=== PATIENT | female | born 1945 | race Caucasian/White ===

== ENCOUNTER 2019-06-18 22:07 | Inpatient (IN) | payer BC, MEDICARE ==
[~2019-06-18 22:07] MED LIST: Iopamidol-370 76% 500 ML 1 ML ONE
[2019-06-18 22:24] LABS: #Lymphocytes 0.9 thou/uL (1.20-3.40); #Monocytes 0.6 thou/uL (0.11-0.59); %Basophils 0.3 % (0.0-1.0); %Lymphocytes 6.9 % (21.0-51.0); %Monocytes 4.7 % (0.0-10.0); %Neutrophils 88.1 % (42.0-75.0); Hemoglobin 15.7 g/dL (12.0-16.0); Mean Corpuscular Hemoglobin 29.5 pg (27.0-31.0); Mean Corpuscular Volume 89.4 fL (78.0-98.0); Mean Platelet Volume 8.4 fL (7.4-10.4); Platelet Count 239 thou/uL (130-400); RBC Distribution Width 13.2 % (11.5-14.5); Red Blood Cell (RBC) Count 5.34 mill/uL (4.20-5.40); White Blood Cell (WBC) Count 12.5 thou/uL (4.8-10.8)
[2019-06-18 22:32] LABS: Prothrombin Time 13.4 SEC (12.0-14.7)
[2019-06-18 22:33] LABS: PTT 33.9 SEC (22.9-36.1)
--- NOTE | 2019-06-18 22:34 | CT ---
Exam: Head CT without contrast HISTORY: Left-sided facial droop. Left-sided weakness. Slurred speech. COMPARISON: none FINDINGS: Hemorrhage: No intraparenchymal hemorrhage or extra-axial hematoma. Brain parenchyma: Cortical driscoll-white matter differentiation is preserved. No mass effect or midline shift. Basilar cisterns are patent.There is a nonspecific hyperdensity in the right frontal subcortical white matter. Some of these hypodensities are somewhat ill-defined while others are somew hat more linear in appearance. Components of parenchymal calcification are suspected. The more ill-defined calcification measures 0.9 cm. Ventricular system: Ventricles and sulci are patent and symmetric. Calvarium: Intact. Sinuses and mastoid air cells: Left maxillary sinus mucous retention cyst IMPRESSION: 1. No acute intracranial process 2. Nonspecific hypodensities in the right frontal lobe, involving the subcortical white matter. Possi bility of underlying intraparenchymal mass cannot be excluded. Better interrogation with a pre and postcontrast brain MRI is recommended. Results of study discussed with Lori Cain 06/18/2019 at 10:30 PM Code CR
[2019-06-18] MEDS ORDERED: hydrALAZINE 20 MG/ML VIAL ONE (22:35)
[2019-06-18 22:39] LABS: ALT (SGPT) 29 U/L (8-55); AST (SGOT) 50 U/L (5-34); Albumin 4.3 g/dL (3.4-4.8); Alkaline Phosphatase 100 U/L (40-110); Anion Gap 17 mmol/L (10-20); BUN (Urea Nitrogen) 9 mg/dL (9.8-20.1); Bilirubin, Total 1.4 mg/dL (0.2-1.2); Calc. Creatinine Clearance 0 mL/min (70-130); Calcium 9.6 mg/dL (7.8-10.44); Carbon Dioxide 20 mmol/L (23-31); Chloride 108 mmol/L (98-107); Estimated GFR-MDRD 76; Globulin 2.9 g/dL (2.4-3.5); Glucose 128 mg/dL (83-110); Protein, Total 7.2 g/dL (6.0-8.3); Sodium 141 mmol/L (136-145)
[2019-06-18] MEDS ORDERED: Aspirin Chewable 81 MG TAB ONE (23:29)
[2019-06-19 00:59] VITALS: BMI 41.5
--- NOTE | 2019-06-19 02:41 | HP ---
CHIEF COMPLAINT: Left-sided weakness. HISTORY OF PRESENT ILLNESS: The patient is a 74-year-old female, with no past medical history, who was brought in by the EMS after was unable to be reachable by family. The patient states that she has not been feeling well on Wednesday, she felt that she was a little bit off balance and felt dizzy on Wednesday night. When she woke up on Wednesday morning, she stated that she was holding onto things while ambulating to the bathroom. She then sat down to her TV area, watched some TV, did not feel like her normal self. However, when she tried to get up, she fell on the floor. She denied having a syncopal episode. She stated that she lost her balance and she fell on the floor. Her family and friends were unable to reach her, so at this time, EMS was called, and she was brought into the hospital around 9 to 10 p.m. Based on the family's history, the patient had some speech impairment yesterday. The patient also stated that she did not feel well on Wednesday night. PAST MEDICAL HISTORY: She has just arthritis. SURGICAL HISTORY: Denies. FAMILY HISTORY: Mother lived to be around 97. So no significant family history. SOCIAL HISTORY: She denies any alcohol use, drug use, or smoking history. She is a full code. Lives alone. ALLERGIES: SHE HAS NO KNOWN DRUG ALLERGIES. MEDICATIONS: She only takes Aleve, nothing else. PHYSICAL EXAMINATION: VITAL SIGNS: Temperature was 98.7, respirations of 20. Initially, her blood pressure was 227/105, later on it was 174/76, she is 94% on room air. GENERAL: She is awake, alert, and oriented x3. Does not appear in any distress. CV: S1, S2 present. No murmurs or gallops heard. LUNGS: Clear to auscultation. No rhonchi or wheezes noted. ABDOMEN: Obese, soft. Bowel sounds are present x2. No pain upon palpation. EXTREMITIES: She has no lower extremity edema. Pedal pulses are present x2. NEUROVASCULAR-JON: She has significant deficits on her left upper extremity and left lower extremity. Sensation is intact. However, she is unable to move her left hand. She is able to move her left leg slightly like bending it upward, however, unable to keep it up. She does have a left facial droop. Cerebellum test on the right is intact that is the [id number]. SKIN: No cuts, lesions or bruises noted. LABORATORY RESULTS: As of the following; WBCs of 12.5, hemoglobin of 15.7, hematocrit of 47.7, platelets of 239. Chemistry; sodium of 141, potassium of 4.0, BUN of 9, creatinine 0.75, her glucose is 128. Her bilirubin is 1.4, AST is 50, alkaline phosphatase is 29. Troponin x1 is negative. She did have a CT head and a CT angio. CT head indicated nonspecific hypodensity in the right frontal lobe involving the subcortical white matter and CT angiogram did not show any overt clots or stenosis, just indicated possible 2 mm aneurysm on the level anterior to indicating artery, right frontal meningioma with mass effect upon the right frontal lobe. ASSESSMENT AND PLAN: The patient is a 74-year-old female, who presents to the hospital with complaints of left-sided weakness. 1. Left-sided weakness, most likely a cerebrovascular accident. She does have some CT findings of meningioma. I doubt that this would cause significant deficits to her left side since it is not that significantly large. We will get an MRI brain in the morning. She has been out of the window for any intervention, unclear onset of symptoms. Her family stated that it was on Wednesday. The patient stated that she did not feel well Wednesday and also when she woke up on Wednesday morning, she was off-balance. We will start her on aspirin and statin. We will check a lipid level in the morning. We will do an echocardiogram and also consult Neurology. I will get Physical Therapy to evaluate her also. Her blood pressure is elevated. I would not treat it, currently, 170s, 180s acceptable. We will continue to monitor her. 2. Fall. This is most likely secondary to her stroke. We will continue to monitor and give her therapy, but she will probably need inpatient therapy. 3. Deep venous thrombosis prophylaxis, we will put patient on subcu heparin. Job ID: [id number]
[2019-06-19] MEDS ORDERED: Digoxin 0.5 MG/2 ML AMP SLOW IVP SCH (03:45)
[2019-06-19 04:49] LABS: Hemoglobin A1c 5.7 % (4.0-6.0)
[2019-06-19 04:51] LABS: ALT (SGPT) 26 U/L (8-55); AST (SGOT) 58 U/L (5-34); Albumin 3.9 g/dL (3.4-4.8); Alkaline Phosphatase 88 U/L (40-110); Anion Gap 14 mmol/L (10-20); BUN (Urea Nitrogen) 8 mg/dL (9.8-20.1); Bilirubin, Total 1.7 mg/dL (0.2-1.2); Calc. Creatinine Clearance 142 mL/min (70-130); Calcium 9.4 mg/dL (7.8-10.44); Carbon Dioxide 22 mmol/L (23-31); Chloride 109 mmol/L (98-107); Estimated GFR-MDRD 82; Globulin 2.7 g/dL (2.4-3.5); Glucose 121 mg/dL (83-110); Potassium 3.5 mmol/L (3.5-5.1); Protein, Total 6.6 g/dL (6.0-8.3); Sodium 141 mmol/L (136-145)
[2019-06-19 04:55] LABS: Cardiac Risk 3.8 (Less than 4.5)
[2019-06-19 06:29] LABS: #Lymphocytes 1.1 thou/uL (1.20-3.40); #Monocytes 0.5 thou/uL (0.11-0.59); %Basophils 0.2 % (0.0-1.0); %Eosinophils 0.2 % (0.0-10.0); %Lymphocytes 10.2 % (21.0-51.0); %Monocytes 4.9 % (0.0-10.0); %Neutrophils 84.5 % (42.0-75.0); Hemoglobin 14.7 g/dL (12.0-16.0); Mean Corpuscular HGB CONC 31.2 g/dL (32.0-36.0); Mean Corpuscular Hemoglobin 28.9 pg (27.0-31.0); Mean Corpuscular Volume 92.7 fL (78.0-98.0); Mean Platelet Volume 8.9 fL (7.4-10.4); Platelet Count 249 thou/uL (130-400); RBC Distribution Width 13.6 % (11.5-14.5); Red Blood Cell (RBC) Count 5.11 mill/uL (4.20-5.40); White Blood Cell (WBC) Count 10.7 thou/uL (4.8-10.8)
[2019-06-19] MEDS ORDERED: Magnevist 469MG/ML 20 ML VIAL ONE (09:35)
[2019-06-19] MEDS: Aspirin 325 mg Enteric Coated Tablet PO SCH (10:17)
[2019-06-19] MEDS: Enoxaparin Sodium 40 MG/0.4 ML SYRINGE SC SCH (10:17)
--- NOTE | 2019-06-19 10:41 | MRI ---
MRI BRAIN WITH AND WITHOUT CONTRAST: DATE: 06/19/2019 HISTORY: 74-year-old female with acute stroke (left upper extremity weakness) and intracranial mass. COMPARISON: no prior MRI TECHNIQUE: Multiplanar, multisequence MRI of the brain performed pre- and post-IV injection of gadolinium based contrast agent. FINDINGS: Occupying a significant portion of the right side of the camilo, there is an approximately 2 x 1.5 cm r egion of T2 and FLAIR hyperintensity, with restricted diffusion, representing an acute or subacute infarction. There is a an approximately 2.8 x 1.6 x 2.3 cm homogeneously enhancing extra-axial mass with broad du ral base that indents the right frontal lobe brain parenchyma, without causing vasogenic edema. In addition to the enhancing dural tail, there is asymmetrically increased pachymeningeal enhancement ex tending long distances of the right supratentorial dura, of uncertain etiology. Other than the right frontal lobe indentation, there is no other area of mass effect. No midline shif t, obstructive hydrocephalus, recent or remote major intra-axial hemorrhage, or extra-axial fluid collection. The dural venous sinuses are patent and clear. The above-mentioned meningioma does not co ntact the dural venous sinuses. IMPRESSION: 1) acute or subacute right pontine infarction. 2) right frontal lobe meningioma.
[2019-06-19] MEDS ORDERED: Clopidogrel Bisulfate 300 MG TAB PO SCH (11:15)
--- NOTE | 2019-06-19 12:28 | CON ---
DATE OF CONSULTATION: HISTORY OF PRESENT ILLNESS: The patient is a 74-year-old woman, who presented with acute onset of difficulty speaking and left-sided weakness. The patient has no previous cardiac history. She was in her usual state of health when she suddenly had difficulty speaking. The patient noticed having weakness in both left upper and lower extremities. The patient came to the emergency room for further evaluation. The patient during her hospitalization noted to have a rapid irregular heart rhythm. The patient denied having any palpitations. The patient denies having chest discomfort or dyspnea. PAST MEDICAL HISTORY: Arthritis and endometriosis. PAST SURGICAL HISTORY: D and C. ALLERGIES: IODINE. SOCIAL HISTORY: Nonsmoker. No excess use of alcohol. MEDICATIONS: On admission were none. REVIEW OF SYSTEMS: Ten-point system otherwise unremarkable. No history of bruising or bleeding bright red blood per rectum. PHYSICAL EXAMINATION: GENERAL: This is an obese woman, in no acute distress. VITAL SIGNS: Blood pressure 139/70. NECK: No jugular vein distention. LUNGS: Clear to auscultation. HEART: Regular rate and rhythm. Normal S1 and S2. No murmurs. ABDOMEN: Distended. EXTREMITIES: Showed no edema. VASCULAR: Radial pulses are 2+. LABORATORY DATA: Sodium 141, potassium 3.5, chloride 109, bicarbonate 22, BUN 8 , creatinine 0.7, and glucose 121. White blood cell count 10.7, hemoglobin 14.7, hematocrit 47.3, and platelets 249. EKG revealed normal sinus rhythm with a normal EKG. supervisor specialty plant revealed a rapid atrial fibrillation/flutter. ASSESSMENT AND PLAN: From a cardiac standpoint, the patient suffered a cerebrovascular accident. She has atrial fibrillation/flutter, so we will start the patient on beta-charlotte therapy. When it is appropriate, the patient should be started on anticoagulation therapy. She has a CHADS-VASc score of 4. I will check the patient's echocardiogram. We will follow this patient with you through her hospitalization. Job ID: [id number] [facility]
--- NOTE | 2019-06-19 12:38 | CON ---
DATE OF CONSULTATION: 06/19/2019 REASON FOR CONSULTATION: Left-sided weakness. HISTORY OF PRESENT ILLNESS: Ms. Barnes is a 74-year-old female with no past medical history, presented to the hospital via EMS because of left-sided weakness. According to the patient, she has not been feeling well on Wednesday and then she fell and was little off balance and dizzy on Wednesday night. She woke up on Wednesday morning and stated that she was holding things while ambulating to the bathroom. She also says that her left side was weaker than normal. She denied nausea, vomiting, headache, vertigo, dizziness. She was off balance and fell on the floor. Says her family was unable to reach. The EMS was called and she was brought to the hospital around 9 to 10 p.m. yesterday. There is also some slurred speech. PAST MEDICAL HISTORY: Arthritis. SURGICAL HISTORY: The patient has does not have any surgical history. FAMILY HISTORY: No significant family history. SOCIAL HISTORY: She denies alcohol or illegal drug use. She lives alone and takes care of herself. ALLERGIES: NO KNOWN DRUG ALLERGIES. MEDICATIONS: Aleve. ROS: All systems reviewed and were negative except per HPI PHYSICAL EXAMINATION: VITAL SIGNS: Blood pressure was 220/80, pulse 80, respiratory rate 18. CVS: Regular rate and rhythm. CHEST: Clear. ABDOMEN: Soft. NECK: No carotid bruit. NEUROLOGICAL: Mental status; the patient is alert and oriented to person, place , and time. Speech Dysarthria Cranial nerves; pupils are equal and reactive to light. Face, left facial droop and dysarthria. Extraocular movements intact. Moves neck in both direction. Hearing seems to be intact. Motor; muscle, tone, and bulk are normal. Strength 5/5 on the right and 1/5 on the left. Tone decreased on the left. Cerebellar; unable to perform on the left secondary to weakness, intact on the right. Toes equivocal bilaterally. Reflexes symmetric. Sensation intact on the right. Minimal withdrawal to nailbed pressure on the left. Gait not tested due to patient's safety reasons. LABORATORY DATA: Data reviewed. CBC and CMP were essentially unremarkable. CT of head indicated nonspecific hypodensity in the right frontal lobe involving the subcortical white matter and CT angiogram did not show any overt clots or stenosis, 2 mm aneurysm on the level anterior to the indicating artery. There is also evidence of right frontal meningioma with mass effect on the right frontal lobe. ASSESSMENT AND PLAN: A 74-year-old who presented with left-sided weakness, most likely cerebrovascular accident. Obtain MRI of the brain, carotid Dopplers to rule out extracranial stenosis. Continue aspirin and statin for secondary stroke prevention. Consider Plavix for 21 days. Neuro checks every 4 hours. Continue management per primary. Echocardiography to rule out cardioembolic source. PT/OT/Speech. DVT prophylaxis. Consider Neurosurgery input for meningioma. Plan discussed with the primary attending. We will continue to follow. Thank you for the consult. Job ID: [id number] MARGARITA
--- NOTE | 2019-06-19 16:58 | EKG ---
Test Reason : STAT Blood Pressure : / mmHG Vent. Rate : 092 BPM Atrial Rate : 092 BPM P-R Int : 228 ms QRS Dur : 084 ms QT Int : 372 ms P-R-T Axes : 053 016 082 degrees QTc Int : 460 ms Sinus rhythm with 1st degree A-V block Septal infarct , age undetermined Possible Inferior infarct , age undetermined Abnormal ECG No previous ECGs available Confirmed by DR. Thelma PÉREZ ([id number]) on 06/19/2019 4:57:46 PM Referred By: CARLOS OCHOA Confirmed By:DR. Thelma PÉREZ
[2019-06-19] MEDS: Atorvastatin Calcium 40 MG TAB PO SCH (21:06)
[2019-06-19] MEDS: Acetaminophen 325 MG TAB PO PRN (23:00)
[2019-06-20 05:08] LABS: Potassium 3.4 mmol/L (3.5-5.1)
[2019-06-20] MEDS ORDERED: Potassium Chloride 20 MEQ TAB PO SCH ×2 (09:00→19:45)
[2019-06-20] MEDS ORDERED: Clopidogrel Bisulfate 75 MG TAB PO SCH (09:00)
[2019-06-20] MEDS: Enoxaparin Sodium 40 MG/0.4 ML SYRINGE SC SCH (09:15)
[2019-06-20] MEDS: Aspirin 325 mg Enteric Coated Tablet PO SCH (09:16)
[2019-06-20] MEDS ORDERED: NIFEdipine XL 30 MG TAB PO SCH (12:00)
--- NOTE | 2019-06-20 12:16 | PDOC.HOSPP ---
- Subjective Encounter Date: 06/20/19 Subjective: Patient is alert and awake. - Objective Vital Signs & Weight: Vital Signs (12 hours) Temp Pulse Pulse Resp BP BP Pulse Ox 06/20/19 11:24 97.4 F L 64 18 196/86 H 97 06/20/19 09:41 68 192/83 H 06/20/19 07:27 98.3 F 63 18 168/75 H 94 L 06/20/19 04:00 98.5 F 75 16 153/68 H 94 L Weight Admit Weight 273 lb 4.8 oz Weight 273 lb 4.8 oz I&O: 06/19/19 06/20/19 06/21/19 06:59 06:59 06:59 Intake Total 120 800 Output Total 1500 Balance 120 -700 Result Diagrams: 06/19/19 04:13 06/20/19 04:46 Radiology Reviewed by me: Yes EKG Reviewed by me: Yes Hospitalist ROS - Review of Systems Constitutional: denies: fever, chills, sweats, weakness, malaise, other Eyes: denies: pain, vision change, conjunctivae inflammation, eyelid inflammation, redness, other ENT: denies: ear pain, ear discharge, nose pain, nose discharge, nose congestion , mouth pain, mouth swelling, throat pain, throat swelling, other Respiratory: denies: cough, dry, shortness of breath, hemoptysis, SOB with excertion, pleuritic pain, sputum, wheezing, other Gastrointestinal: denies: nausea, vomiting, abdominal pain, diarrhea, constipation, melena, hematochezia, other Genitourinary: denies: dysuria, frequency, incontinence, hematuria, retention, other Skin: denies: rash, lesions, antonio, bruising, other - Medication Medications: Active Medications Generic Name Dose Route Start Last Admin Trade Name Freq PRN Reason Stop Dose Admin Acetaminophen 650 mg 06/19/19 21:32 06/19/19 23:00 Tylenol PO 650 mg Q4H PRN Administration Headache/Fever/Mild Pain (1-3) Aspirin 325 mg 06/19/19 09:00 06/20/19 09:16 Ecotrin PO 325 mg DAILY ASPEN Administration Atorvastatin Calcium 80 mg 06/19/19 21:00 06/19/19 21:06 Lipitor PO 80 mg HS ASPEN Administration Enoxaparin Sodium 40 mg 06/19/19 09:00 06/20/19 09:15 Lovenox SC 40 mg 0900 ASPEN Administration Metoprolol Succinate 50 mg 06/20/19 09:00 06/20/19 09:16 Toprol Xl PO 50 mg DAILY ASPEN Administration Sodium Chloride 10 ml 06/19/19 00:15 06/20/19 09:15 Flush - Normal Saline IVF 10 ml PRN PRN Administration Saline Flush - Exam General Appearance: awake alert Eye: PERRL, anicteric sclera ENT: normocephalic atraumatic, no oropharyngeal lesions Neck: supple, symmetric Heart: RRR Respiratory: CTAB Gastrointestinal: soft Extremities: no cyanosis, no clubbing, no edema Skin: normal turgor, no lesions, no rashes Neurological - other findings: Left facial droop, LUE 1/5 LLE 2/5 Musculoskeletal - other findings: Decreased tone - left upper and lower extremity Psychiatric: normal affect, normal behavior, A&O x 3 Hosp A/P (1) CVA (cerebral vascular accident) Code(s): I63.9 - CEREBRAL INFARCTION, UNSPECIFIED Status: Acute Qualifiers: Laterality of affected vessel: left Plan: MRI Brain reviewed which was consistent with subacute infarctions in the right camilo. Echocardiogram showed nop significant findings. Continue ASA and Statin for secondary stroke prevention. Consider adding Plavix. Neurochecks every 4 hours. Continue home medications. Continue medical management per primary team. PT/OT Consider rehab consult. Plan discussed with the patient, nursing staff and the primary hospitalist (2) Hypertension Code(s): I10 - ESSENTIAL (PRIMARY) HYPERTENSION Status: Acute Qualifiers: Hypertension type: essential hypertension Qualified Code(s): I10 - Essential (primary) hypertension Plan: Continue medical management per primary team. (3) Meningioma Code(s): D32.9 - BENIGN NEOPLASM OF MENINGES, UNSPECIFIED Status: Acute Plan: Right frontal meningioma on MRI Brain- Consider neurosurgery input. - Plan old records reviewed/req, PT/OT, DVT proph w/SCDs Consults: other (Rehab)
--- NOTE | 2019-06-20 14:57 | CT ---
EXAM: CT ANGIOGRAM OF THE HEAD AND NECK INDICATION: Stroke COMPARISON: None TECHNIQUE: CT angiogram of the head and neck are performed in the axial plane. Three-dimensional refo rmatted images are submitted for interpretation. FINDINGS: CTA OF THE HEAD WITH AND WITHOUT CONTRAST: POSTCONTRAST CT OF BRAIN: Extra-axial enhancing mass along the right frontal convexity compatible with meningioma measuring 2.8 x 1.7 cm Postcontrast soft tissue neck CT: Sinuses: Left maxillary sinus mucous retention cyst. Orbits: Bilateral ocular lenses are appropriately located. Both globes are intact. Retrobulbar fat is preserved. Symmetric attenuation the optic nerves and ocular rectus muscles. Salivary glands:Symmetric fatty attenuation of the parotid and submandibular glands Thyroid gland: Grossly unremarkable Lymph nodes: No evidence of lymphadenopathy by size criteria. Paraspinal muscles: Symmetric attenuation of the sternocleidomastoid muscles. Appropriate attenuation of the paraspinal muscles. Cervical spine:Vertebral body height is maintained. No fracture. No significant central canal stenosi s or significant neural foraminal narrowing. Limited evaluation by technique. Upper mediastinum and lung apices: No acute abnormality. Chronic lung parenchymal changes. CTA OF THE NECK WITH CONTRAST: Aorta: Normal caliber Right carotid artery: Appropriate enhancement and luminal diameter of the origin of the right carotid artery, carotid bifurcation and internal carotid artery. No significant stenosis based upon NASCET criteria Left carotid: Appropriate enhancement and luminal diameter the origin of the left carotid artery. The left common carotid artery, carotid bifurcation and internal carotid artery of appropriate enhancement and luminal diameter. No significant stenosis based upon NASCET criteria Subclavian arteries:Patent and symmetric Vertebral arteries:Patent. Dominant left vertebral artery. CTA OF THE BRAIN: Intracranial internal carotid arteries:Appropriate enhancement and luminal diameter. Anterior circulation: Symmetric enhancement and luminal diameter the A1 segments, M1 segments, proxim al A2 segments and proximal MCA branches. Questionable small anterior communicating artery aneurysm, measuring 0.2 cm. Intracranial vertebral arteries: Intracranial vertebral arteries are patent. Bilateral PICA artery or igins have a normal appearance. Posterior circulation: Appropriate enhancement and luminal diameter of the basilar artery and bilater al P1 segments. IMPRESSION: 1. No hemodynamically significant stenosis, occlusion or aneurysmal formation. 2. Questionable 2 mm aneurysm at the level anterior to indicating artery 3. Right frontal meningioma with mass effect upon the right frontal lobe. 4. Results of study discussed with Dr. Earl 06/18/2019 at 10:39 PM Code CR Transcribed Date/Time: 06/20/2019 2:56 PM
[2019-06-20] MEDS: Acetaminophen 325 MG TAB PO PRN (18:12)
--- NOTE | 2019-06-20 19:32 | PDOC.HOSPP ---
- Subjective Encounter Date: 06/20/19 Encounter Time: 09:00 Subjective: overnight, some improvement in left lower extremity strength. Had 4 beat vtach episode while straining, but remained asymptomatic. otherwise no events. - Objective Vital Signs & Weight: Vital Signs (12 hours) Temp Pulse Pulse Resp BP BP BP 06/20/19 16:42 70 06/20/19 15:30 98.0 F 70 18 06/20/19 12:47 73 161/68 H 06/20/19 12:20 74 06/20/19 12:05 75 06/20/19 11:50 74 06/20/19 11:40 66 06/20/19 11:24 97.4 F L 64 18 06/20/19 10:50 201/83 H 188/79 H 06/20/19 09:41 68 06/20/19 08:05 BP BP Pulse Ox 06/20/19 16:42 175/90 H 06/20/19 15:30 193/85 H 96 06/20/19 12:47 06/20/19 12:20 171/74 H 06/20/19 12:05 172/72 H 06/20/19 11:50 177/74 H 06/20/19 11:40 183/80 H 06/20/19 11:24 196/86 H 97 06/20/19 10:50 06/20/19 09:41 192/83 H 06/20/19 08:05 97 Weight Admit Weight 273 lb 4.8 oz Weight 273 lb 4.8 oz I&O: 06/19/19 06/20/19 06/21/19 06:59 06:59 06:59 Intake Total 124 796 0419 Output Total 1500 900 Balance 120 -700 300 Result Diagrams: 06/19/19 04:13 06/20/19 04:46 Hospitalist ROS - Review of Systems Constitutional: denies: fever, chills, sweats, weakness, malaise, other Respiratory: denies: cough, dry, shortness of breath, hemoptysis, SOB with excertion, pleuritic pain, sputum, wheezing, other Cardiovascular: denies: chest pain, palpitations, orthopnea, paroxysmal noc. dyspnea, edema, light headedness, other Gastrointestinal: denies: nausea, vomiting, abdominal pain, diarrhea, constipation, melena, hematochezia, other Genitourinary: denies: dysuria, frequency, incontinence, hematuria, retention, other - Medication Medications: Active Medications Generic Name Dose Route Start Last Admin Trade Name Sea PRN Reason Stop Dose Admin Acetaminophen 650 mg 06/19/19 21:32 06/20/19 18:12 Tylenol PO 650 mg Q4H PRN Administration Headache/Fever/Mild Pain (1-3) Aspirin 325 mg 06/19/19 09:00 06/20/19 09:16 Ecotrin PO 325 mg DAILY ASPEN Administration Atorvastatin Calcium 80 mg 06/19/19 21:00 06/19/19 21:06 Lipitor PO 80 mg HS ASPEN Administration Enoxaparin Sodium 40 mg 06/19/19 09:00 06/20/19 09:15 Lovenox SC 40 mg 0900 ASPEN Administration Metoprolol Succinate 50 mg 06/20/19 09:00 06/20/19 09:16 Toprol Xl PO 50 mg DAILY ASPEN Administration Nifedipine 30 mg 06/20/19 12:00 06/20/19 12:47 Procardia Xl PO 30 mg 1200 ASPEN Administration Sodium Chloride 10 ml 06/19/19 00:15 06/20/19 09:15 Flush - Normal Saline IVF 10 ml PRN PRN Administration Saline Flush - Exam General Appearance: NAD, awake alert Heart: RRR (sinus on tele), no murmur, no gallops, no rubs, normal peripheral pulses Respiratory: CTAB, no wheezes, no rales, no ronchi, normal chest expansion, no tachypnea, normal percussion Gastrointestinal: soft, non-tender, non-distended, normal bowel sounds Neurological - other findings: raises left leg from bed in horizontal position 3 /5; left arm unchanged Psychiatric: normal affect, normal behavior, A&O x 3 Hosp A/P - Plan # ischemic right pontine stroke -on aspirin -on presentation, NIHH score > 3, small vascular stroke -tele showing p. afib; rest of studies unchanged; considering sudden onset and available evidence, likely thromboembolic -discussed with neuro, cleared for starting anticoagulation 48 hours after symptom onse -started eliquis 5mg PO bid (06/20) otherwise management unchanged, expected DC 06/20
[2019-06-20] MEDS: Atorvastatin Calcium 40 MG TAB PO SCH (20:24)
[2019-06-21 05:44] LABS: Magnesium 2.2 mg/dL (1.6-2.6); Potassium 4.1 mmol/L (3.5-5.1)
[2019-06-21] MEDS: Aspirin 325 mg Enteric Coated Tablet PO SCH (08:08)
[2019-06-21] MEDS: Enoxaparin Sodium 40 MG/0.4 ML SYRINGE SC SCH (08:09)
--- NOTE | 2019-06-21 11:24 | PDOC.HOSPP ---
- Subjective Encounter Date: 06/20/19 Subjective: Patient is alert and awake. Improvement in LLE weakness. - Objective Vital Signs & Weight: Vital Signs (12 hours) Temp Pulse Resp BP Pulse Ox 06/21/19 08:08 95 06/21/19 07:35 97.5 F L 71 20 186/79 H 95 06/21/19 03:24 97.6 F 62 18 161/68 H 95 Weight Admit Weight 273 lb 4.8 oz Weight 273 lb 4.8 oz I&O: 06/20/19 06/21/19 06/22/19 06:59 06:59 06:59 Intake Total 800 1680 Output Total 1500 1790 Balance -700 -110 Result Diagrams: 06/19/19 04:13 06/21/19 04:27 Radiology Reviewed by me: Yes EKG Reviewed by me: Yes Hospitalist ROS - Review of Systems Constitutional: reports: fever. denies: chills, sweats, weakness, malaise, other Eyes: denies: pain, vision change, conjunctivae inflammation, eyelid inflammation, redness, other ENT: denies: ear pain, ear discharge, nose pain, nose discharge, nose congestion , mouth pain, mouth swelling, throat pain, throat swelling, other Respiratory: denies: cough, dry, shortness of breath, hemoptysis, SOB with excertion, pleuritic pain, sputum, wheezing, other Cardiovascular: denies: chest pain, palpitations, orthopnea, paroxysmal noc. dyspnea, edema, light headedness, other Gastrointestinal: denies: nausea, vomiting, abdominal pain, diarrhea, constipation, melena, hematochezia, other Musculoskeletal: denies: neck pain, shoulder pain, arm pain, back pain, hand pain, leg pain, foot pain, other Skin: denies: rash, lesions, antonio, bruising, other Neurological: reports: weakness, change in speech - Medication Medications: Active Medications Generic Name Dose Route Start Last Admin Trade Name Freq PRN Reason Stop Dose Admin Acetaminophen 650 mg 06/19/19 21:32 06/20/19 18:12 Tylenol PO 650 mg Q4H PRN Administration Headache/Fever/Mild Pain (1-3) Aspirin 325 mg 06/19/19 09:00 06/21/19 08:08 Ecotrin PO 325 mg DAILY ASPEN Administration Atorvastatin Calcium 80 mg 06/19/19 21:00 06/20/19 20:24 Lipitor PO 80 mg HS ASPEN Administration Enoxaparin Sodium 40 mg 06/19/19 09:00 06/21/19 08:09 Lovenox SC 40 mg 0900 ASPEN Administration Metoprolol Succinate 50 mg 06/20/19 09:00 06/21/19 08:08 Toprol Xl PO 50 mg DAILY ASPEN Administration Sodium Chloride 10 ml 06/19/19 00:15 06/20/19 20:26 Flush - Normal Saline IVF 10 ml PRN PRN Administration Saline Flush - Exam General Appearance: awake alert Eye: PERRL, anicteric sclera ENT: normocephalic atraumatic, no oropharyngeal lesions, moist mucosa Neck: supple, symmetric, no JVD, no thyromegaly Heart: RRR Respiratory: CTAB Gastrointestinal: soft Extremities: no cyanosis, no clubbing, no edema Skin: normal turgor, no lesions, no rashes Neurological: facial droop, hemiplegia, speech deficit Neurological - other findings: Left facial droop, Left hemiplegia, Dysarthria Musculoskeletal - other findings: Increased tone on the left Psychiatric: normal affect, normal behavior, A&O x 3 Hosp A/P (1) CVA (cerebral vascular accident) Code(s): I63.9 - CEREBRAL INFARCTION, UNSPECIFIED Status: Acute Qualifiers: Laterality of affected vessel: left Plan: Continue ASA and Statin for secondary stroke prevention. MRI Brain reviewed which was consistent with subacute infarctions in the right camilo. Echocardiogram showed nop significant findings. Neurochecks every 4 hours. Continue home medications. Continue medical management per primary team. PT/OT Discharge to rehab Plan discussed with the patient and during MDR meeting with the team (2) Hypertension Code(s): I10 - ESSENTIAL (PRIMARY) HYPERTENSION Status: Acute Qualifiers: Hypertension type: essential hypertension Qualified Code(s): I10 - Essential (primary) hypertension Plan: Continue management per primary team. (3) Meningioma Code(s): D32.9 - BENIGN NEOPLASM OF MENINGES, UNSPECIFIED Status: Acute Plan: Right frontal meningioma on MRI Brain. Neurosurgery will follow up as outpatient. - Plan old records reviewed/req, PT/OT, speech therapy, DVT proph w/SCDs Consults: other (rehab)
[2019-06-21 11:42] VITALS: TEMP 98
[2019-06-21] MEDS ORDERED: NIFEdipine XL 30 MG TAB PO SCH (12:00)
[2019-06-21 12:03] VITALS: BP 181/81
[2019-06-21] MEDS ORDERED: Chlorthalidone 25 MG TAB PO SCH (13:15)
--- NOTE | 2019-06-21 13:25 | EKG ---
Test Reason : Blood Pressure : / mmHG Vent. Rate : 089 BPM Atrial Rate : 089 BPM P-R Int : 194 ms QRS Dur : 082 ms QT Int : 388 ms P-R-T Axes : 039 030 052 degrees QTc Int : 472 ms Normal sinus rhythm Normal ECG Confirmed by JANICE OHARA ([id number]), greeting card editor MOISÉS SHARPE ([id number] on 06/21/2019 1:25:38 PM Referred By: Confirmed By:JANICE OHARA
[2019-06-22] MEDS ORDERED: Chlorthalidone 25 MG TAB PO SCH (09:00)
== END 2019-06-21 15:29 | DRG 65 ==
LOC: ERS 22:07 → 2SE 23:06 → OBSVTOIN 23:59
PROVIDERS: ADMIT Internal Medicine; ATTEND Internal Medicine
DX: I63.9 Cerebral infarction, unspecified (principal); G81.94 Hemiplegia, unspecified affecting left nondominant side; I48.92 Unspecified atrial flutter; Z68.41 Body mass index [BMI] 40.0-44.9, adult; I47.2 Ventricular tachycardia; R29.712 NIHSS score 12; R40.2362 Coma scale, best motor response, obeys commands, at arrival to emergency department; R40.2142 Coma scale, eyes open, spontaneous, at arrival to emergency department; R40.2252 Coma scale, best verbal response, oriented, at arrival to emergency department; M19.90 Unspecified osteoarthritis, unspecified site; I48.91 Unspecified atrial fibrillation; I10 Essential (primary) hypertension; R13.10 Dysphagia, unspecified; D32.0 Benign neoplasm of cerebral meninges; E66.9 Obesity, unspecified; Z91.041 Radiographic dye allergy status; Z79.1 Long term (current) use of non-steroidal anti-inflammatories (NSAID)
CPT/HCPCS: 36415; 36416; 70450; 70496; 70498; 70553; 80053; 80061; 83036; 83735; 84132; 84484; 85025; 85610; 85730; 93005; 93010; 93306; 94760; 96374; A9579; J0360; J1160; J1650; Q9967